=== PATIENT | female | born 1950 | race Caucasian/White ===

== ENCOUNTER 2022-02-23 13:56 | Outpatient (CLI) | payer MEDICARE, BC | END 2022-02-23 13:57 | disposition home or self-care (01) | LOC: CSHMAMMO 13:56 | PROVIDERS: ATTEND Obstetrics & Gynecology | DX: Z12.31 Encounter for screening mammogram for malignant neoplasm of breast (principal); Z91.89 Other specified personal risk factors, not elsewhere classified | CPT/HCPCS: 77063; 77067 ==

== ENCOUNTER 2022-05-10 01:45 | Observation (INO) | payer MEDICARE, BC ==
[2022-05-10 03:34] LABS: #Basophils 0.1 10x3/uL (0.0-0.2); #Eosinphils 0.1 10x3/uL (0.0-0.5); #Monocytes 0.6 10x3/uL (0.0-1.1); #Neutrophils 2.9 10x3/uL (1.5-8.4); %Basophils 1.1 % (0.0-2.0); %Lymphocytes 21.8 % (18.0-47.0); %Monocytes 12.3 % (0.0-10.0); %Neutrophils 62.6 % (40.0-75.0); Hemoglobin 13.2 g/dL (12.0-15.5); Mean Corpuscular HGB CONC 34.8 g/dL (32.0-36.0); Mean Corpuscular Hemoglobin 29.7 pg (27.0-33.0); Mean Corpuscular Volume 85.4 fl (81.6-98.3); Mean Platelet Volume 10.1 fl (7.4-10.4); Platelet Count 211 10x3/uL (150-450); RBC Distribution Width 12.3 % (11.5-14.5); Red Blood Cell (RBC) Count 4.44 10x6/uL (3.90-5.03); White Blood Cell (WBC) Count 4.6 10x3/uL (3.5-10.5)
[2022-05-10 03:45] LABS: ALT (SGPT) 28 U/L (8-55); AST (SGOT) 29 U/L (5-34); Albumin 3.8 g/dL (3.4-4.8); Alkaline Phosphatase 84 U/L (40-110); Anion Gap 11 mmol/L (10-20); BUN (Urea Nitrogen) 16 mg/dL (9.8-20.1); Bilirubin, Total 0.3 mg/dL (0.2-1.2); CK (CPK) 51 U/L (29-168); Calc. Creatinine Clearance 0 mL/min (70-130); Carbon Dioxide 26 mmol/L (23-31); Chloride 107 mmol/L (98-107); Estimated GFR 81; Globulin 2.4 g/dL (2.4-3.5); Glucose 93 mg/dL (83-110); Magnesium 1.8 mg/dL (1.6-2.6); Potassium 4.1 mmol/L (3.5-5.1); Protein, Total 6.2 g/dL (5.8-8.1); Sodium 140 mmol/L (136-145)
[2022-05-10 04:08] LABS: CKMB 1.3 ng/mL (0-6.6)
[2022-05-10] MEDS ORDERED: Aspirin Chewable 81 MG TAB ONE (04:28)
[2022-05-10] MEDS ORDERED: Acetaminophen 325 MG TAB PO PRN (06:07)
[2022-05-10 07:47] LABS: Cardiac Risk 3.8 (Less than 4.5); Cholesterol 145 mg/dl (< 200 Desired); HDL Cholesterol 38 mg/dL (>60 Neg Risk); LDL Cholesterol, Calculated 97 mg/dL; Magnesium 1.9 mg/dL (1.6-2.6); Triglycerides 50 mg/dL (Less than 150)
[2022-05-10] MEDS ORDERED: Levothyroxine Sodium 75 MCG TAB PO SCH (08:15)
[2022-05-10] MEDS ORDERED: Enoxaparin Sodium 40 MG/0.4 ML SYRINGE SC SCH (09:00)
[2022-05-10] MEDS ORDERED: Magnesium Oxide 400 MG TAB PO SCH (09:00)
[2022-05-10] MEDS ORDERED: TESTOSTERONE PO SCH (09:00)
[2022-05-10] MEDS ORDERED: ESTROGEN ESTER PO SCH (09:00)
[2022-05-10] MEDS ORDERED: Aspirin 81 mg Enteric Coated Tablet PO SCH (09:00)
[2022-05-11] MEDS ORDERED: Levothyroxine Sodium 75 MCG TAB PO SCH (06:00)
[2022-05-11 12:29] VITALS: BMI 26.4
[2022-05-11 12:31] VITALS: BP 121/64; TEMP 98.3
== END 2022-05-10 12:10 | disposition home or self-care (01) ==
LOC: CSHERS 01:45 → SUATTDRO 01:45 → CSHTELE 08:03 → INTOOBSV 08:03
PROVIDERS: ADMIT Family Medicine; ATTEND Family Medicine
DX: I49.3 Ventricular premature depolarization (principal); R00.2 Palpitations; E03.9 Hypothyroidism, unspecified; I10 Essential (primary) hypertension; R77.8 Other specified abnormalities of plasma proteins; Z20.822 Contact with and (suspected) exposure to COVID-19; Z79.82 Long term (current) use of aspirin; Z79.899 Other long term (current) drug therapy
CPT/HCPCS: 71045; 80061; 82550; 82553; 83735; 84484 ×2; 85379; 93005; 93306; 99285; G0378 ×2; U0003; U0005; 36415; 80053; 84443; 85025

== ENCOUNTER 2023-03-01 13:51 | Outpatient (CLI) | payer MEDICARE, BC | END 2023-03-01 13:52 | disposition home or self-care (01) | LOC: CSHMAMMO 13:51 | PROVIDERS: ATTEND Obstetrics & Gynecology | DX: Z12.31 Encounter for screening mammogram for malignant neoplasm of breast (principal); Z91.89 Other specified personal risk factors, not elsewhere classified | CPT/HCPCS: 77063; 77067 ==

== ENCOUNTER 2024-05-31 08:13 | Outpatient (CLI) | payer MEDICARE, BC | END 2024-05-31 08:14 | disposition home or self-care (01) | LOC: CSHCT 08:13 | PROVIDERS: ATTEND Internal Medicine | DX: R10.32 Left lower quadrant pain (principal) | CPT/HCPCS: 36415; 74178; 82565 ==

== ENCOUNTER 2025-03-07 12:12 | Outpatient (CLI) | payer MEDICARE, BC | END 2025-03-07 12:13 | disposition home or self-care (01) | LOC: CSHMAMMO 12:12 | PROVIDERS: ATTEND Obstetrics & Gynecology | DX: Z12.31 Encounter for screening mammogram for malignant neoplasm of breast (principal); Z91.89 Other specified personal risk factors, not elsewhere classified | CPT/HCPCS: 77063; 77067 ==